=== PATIENT | male | born 1985 | race Two or more races ===

== ENCOUNTER 2022-11-22 11:17 | Emergency (ER) | payer OTHER ==
[~2022-11-22] VITALS: Ht 170.2 cm; Wt 85.6 kg
[2022-11-22 13:51] VITALS: BP 113/77
[2022-11-22] MEDS ORDERED: ERY05OO OP (16:06)
[2022-11-22] MEDS ORDERED: CEPH-510 PO (16:06)
== END 2022-11-22 16:17 | disposition home or self-care (01) ==
LOC: ER 11:17
DX: H00.011 Hordeolum externum right upper eyelid (principal); Z88.0 Allergy status to penicillin